=== PATIENT | female | born 1975 | race Caucasian/White ===

== ENCOUNTER → 2019-01-23 | Outpatient (CLI) | payer BC ==
--- NOTE | 2019-01-23 18:20 | FL ---
EXAMINATION TYPE: Right shoulder fluoroscopic-guided arthrogram injection. DATE OF EXAM: 01/23/2019 HISTORY: 43-year-old female right shoulder pain, complaining of recurring right shoulder dislocations . PROCEDURES: 1. Right shoulder fluoroscopy. 2. Right shoulder arthrogram. Total fluoroscopy time: 42 seconds. Total images: 4. Initial radiographs show degenerative change at the AC joint. No obvious large Hill-Sachs deformity i s identified. TECHNIQUE: The procedure, risks, and alternatives, were discussed with the patient, who requested that nickolas up The consent form was signed, and teach-back occurred. The site/side of the procedure was marked with a line with participation by the patient. The accompan cris paperwork was verified for consistency. A directed history and physical exam was performed prior to the procedure. Medication reconciliation was performed by ancillary personnel. A critical pause was performed with assisting personnel just pr ior to the procedure, and the patient's identity was confirmed using 2 identifiers. Imaging guidance was utilized to select the precise skin entry point just prior to the procedure. The anterior right glenohumeral joint was prepped and draped in the usual sterile fashion and local 1 % lidocaine anesthesia was instilled. Under fluoroscopic guidance, a 22 gauge spinal needle was intr oduced into the right glenohumeral joint. Appropriate needle tip position was confirmed after a small amount of contrast injection. Approximately 10 ml of a mixture of Isovue 370 iodinated contrast, Gadavist, and sterile saline (draw n from a 20ml mixture comprised of 5 mL Isovue-370, 0.07 mL Gadavist, and 15 mL sterile saline) was i njected into the glenohumeral joint. The needle was then removed. The patient tolerated the procedure well. There was no immediate complication. There is no abnormal extension of contrast into the subacromial/subdeltoid bursa. After the procedure, the patient's condition was unchanged. Estimated blood loss was minimal. IMPRESSION: Technically successful right glenohumeral joint arthrogram injection for MRI. No immediate complicati on.
--- NOTE | 2019-01-23 18:31 | MR ---
EXAMINATION TYPE: MR arthrogram right shoulder DATE OF EXAM: 01/23/2019 COMPARISON: Correlation arthrogram injection same day HISTORY: 43 year-old female right shoulder pain, recurrent dislocations. Technique: Multiplanar, multisequence images of the right shoulder were obtained after intra-articula r administration of a gadolinium mixture. As refer to arthrogram injection report of the same day for complete details. FINDINGS: There is adequate distention of the glenohumeral joint following arthrogram injection. The glenoid la anayeli appears intact as does the biceps anchor. Long head biceps tendon remains appropriately situated along the bicipital groove. There is some iatrogenic thickening of the subscapularis tendon secondary to inadvertent injection in to the tendon. Mild to moderate degenerative joint space narrowing and marginal spurring at the acromial clavicular joint. There is minimal contact onto the underlying myotendinous junction of the supraspinatus. No rotator cuff tear or atrophy of the rotator cuff musculature. There is mild to moderate irregular cartilage loss along the inferior aspect of the glenoid but with otherwise overall maintained glenohumeral joint articular cartilage. No loose bodies are identified. No Hill-Sachs deformity or os acromiale. The superior, middle, and inferior glenohumeral ligaments as well as the coracohumeral ligament are v isualized. No evident bony abnormality along the anterior-inferior glenoid to suggest a significant B ankart injury. IMPRESSION: 1. Mild/early degenerative cartilage loss along the inferior glenoid. 2. No tear of the glenoid labrum or rotator cuff 3. No evident Hill-Sachs deformity or sizable Bankart injury identified. 4. 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
== END | disposition home or self-care (01) ==
LOC: RADFLMAIN 12:52
PROVIDERS: ATTEND Specialist/Technologist, Other
DX: M19.011 Primary osteoarthritis, right shoulder (principal)
CPT/HCPCS: 23350; 73040; 73222; A9585; Q9967